=== PATIENT | male | born 1950 | race Caucasian/White ===

== ENCOUNTER 2017-08-16 18:43 | Observation (INO) ==
[2017-08-16] MEDS ORDERED: Aspirin 81 MG TAB.CHEW PO ONE (18:46)
--- NOTE | 2017-08-16 18:55 | Emergency Department Note ---
Disposition Clinical Impression: Chest pain Qualifiers: Chest pain type: unspecified Qualified Code(s): R07.9 - Chest pain, unspecified Disposition: Admitted As Inpatient Condition: Fair [facility]: [facility]Primary Care Provider[facility] - Forms: ED Satisfaction Letter Time of Disposition: 20:18 Chest Pain HPI - General Chief Complaint: ED Chest Pain Stated Complaint: cp and burning Source: patient, EMS Limitations: no limitations Vital Signs Reviewed: Yes Nursing Notes Reviewed: Yes - History of Present Illness HPI Narrative: This 78-year-old male presents to the emergency department via EMS after concern for retrosternal burning sensation that started this morning at 3 AM. Patient states that he came to the emergency department as he started becoming diaphoretic. Patient has extensive history of micro-infarction with CABG. Patient states that he has hypertension, diabetes, hyperlipidemia as well. He used to be a smoker. Patient states that the pain has not gotten any better. He was at the urgent care at the [place] when they sent him here. Severity scale (1-10): 5 - Related Data Home Medications Medication Instructions Recorded Confirmed Aspirin 08/16/17 metFORMIN 1,000 mg PO 1-2XD 08/16/17 08/16/17 Previous Rx's Medication Instructions Recorded HYDROcodone/Acet 5/325 mg [[place] 1 tab PO Q6HR PRN #15 tablet 12/14/16 5-325 mg] Ondansetron [Zofran] 8 mg PO Q8HR PRN #10 tablet 12/14/16 Allergies Allergy/AdvReac Type Severity Reaction Status Date / Time latex Allergy Hives Verified 08/16/17 18:48 lisinopril AdvReac Cough Verified 08/16/17 18:48 All systems ED: reviewed and negative except as stated. Review of Systems: As Per HPI Constitutional: Denies: fever Cardiovascular: Reports: chest pain Respiratory: Denies: cough, dyspnea Gastrointestinal: Denies: abdominal pain, nausea, vomiting Musculoskeletal: Reports: back pain Integumentary: Denies: rash Chest Pain PMH - Past Medical History Medical history: Reports: atrial fibrillation, COPD, coronary artery disease, diabetes, hyperlipidemia, hypertension, myocardial infarction, valvular heart disease, other Psychiatric history: Reports: no psych history - Social History Smoking Status: Former smoker Alcohol use: Reports: none Drug use: Reports: none Physical Exam CONSTITUTIONAL: Alert and oriented X3, well-nourished, well appearing, in no apparent distress HEAD: Normocephalic; atraumatic. EYES: PERRL, no scleral icterus. NOSE: The nose is normal in appearance without rhinorrhea RESP: Normal chest excursion with respiration; breath sounds clear and equal bilaterally; no wheezes, rhonchi, or rales Chest: Midline scar along the sternum, no rashes, no reproducible chest wall tenderness CARD: Regular rhythm, without murmurs, rub or gallop ABD: Non-distended; non-tender, soft,without rigidity, rebound or guarding SKIN: Normal for age and race; warm and dry; no apparent lesions - General Limitations: no limitations General appearance: alert Course Vital Signs Temperature 98.9 F 08/16/17 18:45 Pulse Rate 79 08/16/17 18:45 Respiratory Rate 20 08/16/17 18:45 Blood Pressure 165/91 08/16/17 18:45 O2 Sat by Pulse Oximetry 98 08/16/17 18:45 Temperature 98.9 F 08/16/17 18:45 Pulse Rate 81 08/16/17 19:16 Respiratory Rate 20 08/16/17 19:16 Blood Pressure 123/72 08/16/17 19:16 O2 Sat by Pulse Oximetry 93 08/16/17 19:16 Oxygen Delivery Oxygen Delivery Room Air Chest Pain - MDM Narrative Medical decision making narrative: 58-year-old male to this emergency department with concern for acute coronary syndrome. Patient was having retrosternal chest pain radiating to his shoulders as he had in his last previous myocardial infarction. Patient has extensive history of hypertension, hyperlipidemia, [place], CABG, diabetes, previous smoker. EKG did not reveal any ischemic ST changes. Chest x-ray did not reveal any acute process. Troponin was negative. BNP was mildly elevated at 213. At this time, patient is not any pedal edema or any rales on lung exam. Patient was given sublingual nitroglycerin in the emergency department this resolved his symptoms completely. He was also given an aspirin here as well. I discussed admission with the patient and family at bedside and they agreed. Patient was admitted to the hospitalist. Patient was not in any acute distress and hemodynamically stable upon time of admission. Chest X-Ray 08/16/17 18:46 IMPRESSION: No evidence of acute cardiopulmonary disease. D/ / Bebo Manzano MD / Bebo Manzano MD Interpreting Provider: Bebo Manzano MD Vital Signs Temperature 98.9 F 08/16/17 18:45 Pulse Rate 79 08/16/17 18:45 Respiratory Rate 20 08/16/17 18:45 Blood Pressure 165/91 08/16/17 18:45 O2 Sat by Pulse Oximetry 98 08/16/17 18:45 Temperature 98.9 F 08/16/17 18:45 Pulse Rate 81 08/16/17 19:16 Respiratory Rate 20 08/16/17 19:16 Blood Pressure 123/72 08/16/17 19:16 O2 Sat by Pulse Oximetry 93 08/16/17 19:16 Oxygen Delivery Oxygen Delivery Room Air - Lab Data Result diagrams: 08/16/17 19:05 08/16/17 19:05 Lab Results 08/16/17 08/16/17 08/16/17 Range/Units 19:05 19:05 19:05 WBC 10.6 (4.3-11.1) K/mcL RBC 5.12 (4.19-5.50) M/mcL Hgb 14.8 (12.9-16.9) g/dL Hct 45.4 (37.5-50.1) % MCV 88.7 (83.0-100.0) fL MCH 28.9 (28.0-33.3) pg MCHC 32.6 (31.6-35.5) g/dL RDW 16.3 H (11.5-14.5) % Plt Count 213 (140-400) K/mcL MPV 10.8 (9.4-12.4) fL Immature Gran % 0.4 (0-4) % Seg Neutrophils % 71.3 % Lymphocytes % 19.3 % Monocytes % 7.8 % Eosinophils % 0.8 % Basophils % 0.4 % Neutrophils # 7.6 (1.6-8.9) K/mcL Lymphocytes # 2.1 (0.6-4.6) K/mcL Monocytes # 0.8 (0.0-1.3) K/mcL Eosinophils # 0.1 (0.0-0.6) K/mcL Basophils # 0.0 (0.0-0.2) K/mcL PT 11.5 (9.4-12.1) Seconds INR 1.1 APTT 32.1 (26.0-36.0) Seconds Sodium (136-145) mEq/L Potassium (3.5-4.5) mEq/L Chloride (98-109) mEq/L Carbon Dioxide (19-29) mEq/L BUN (8-26) mg/dL Creatinine (0.72-1.25) mg/dL Est GFR ( Amer) (> 60) Est GFR (Non-Af Amer) (> 60) BUN/Creatinine Ratio (6-26) Glucose (70-99) mg/dL Calculated Osmolality (280-300) Calcium (8.6-10.8) mg/dL Troponin I (0-0.03) ng/mL B-Natriuretic Peptide 213 H (0-100) pg/mL Lipase (8-78) Units/L 08/16/17 08/16/17 Range/Units 19:05 19:05 WBC (4.3-11.1) K/mcL RBC (4.19-5.50) M/mcL Hgb (12.9-16.9) g/dL Hct (37.5-50.1) % MCV (83.0-100.0) fL MCH (28.0-33.3) pg MCHC (31.6-35.5) g/dL RDW (11.5-14.5) % Plt Count (140-400) K/mcL MPV (9.4-12.4) fL Immature Gran % (0-4) % Seg Neutrophils % % Lymphocytes % % Monocytes % % Eosinophils % % Basophils % % Neutrophils # (1.6-8.9) K/mcL Lymphocytes # (0.6-4.6) K/mcL Monocytes # (0.0-1.3) K/mcL Eosinophils # (0.0-0.6) K/mcL Basophils # (0.0-0.2) K/mcL PT (9.4-12.1) Seconds INR APTT (26.0-36.0) Seconds Sodium 138 (136-145) mEq/L Potassium 4.1 (3.5-4.5) mEq/L Chloride 98 (98-109) mEq/L Carbon Dioxide 33 H (19-29) mEq/L BUN 12 (8-26) mg/dL Creatinine 1.05 (0.72-1.25) mg/dL Est GFR ( Amer) > 60 (> 60) Est GFR (Non-Af Amer) > 60 (> 60) BUN/Creatinine Ratio 11 (6-26) Glucose 168 H (70-99) mg/dL Calculated Osmolality 290 (280-300) Calcium 10.1 (8.6-10.8) mg/dL Troponin I 0.02 (0-0.03) ng/mL B-Natriuretic Peptide (0-100) pg/mL Lipase 51 (8-78) Units/L - EKG Data EKG attestation: Yes I reviewed and interpreted this EKG. EKG results narrative: 18:50 Intracranial 80 bpm, ME interval 203 ms, QRS duration 97 seconds, QT 379 ms, QTC 414 ms, normal axis. Sinus rhythm with a ventricular rate of 80 bpm. There is no evidence of any ischemic ST changes noted on this electrocardiogram. No previous to compare this one to. Heart Score - Score History: Moderately Suspicious EKG: Normal Age: Greater than 65 Risk Factors: Equal/Greater than 3 risk factor or history of atherosclerotic disease Troponin: Less than normal limit HEART Score Total: 5 Attestation Statement - Attestation Attestation: Patient was seen with resident physician. I reviewed the history, physical, assessment and plan, and agree with the findings. I also personally evaluated this patient and had [id number] time with this patient. 66-year-old male presents to the emergency department with a chief complaint chest pain. Pain started approximately 3 AM has been continuous. Sharp midsternal and radiates a little bit he said through to the back no shortness of breath and diaphoresis. Took his aspirin and Plavix today. Has a extensive cardiac history. Was seen at the [place] urgent care and was sent to the emergency department for additional evaluation treatment. Patient has mild pain on arrival. On examination vital signs are stable. ENT is unremarkable heart and lungs are both normal. Abdomen is soft and nontender. Extremities unremarkable. Neurologically intact. ED course. Patient's pain was improved with nitroglycerin. Cardiac workup showed a negative troponin. Initial EKG does not show any acute ischemic changes. Chest x-ray did not show any acute abnormalities. We will admit to the hospitalist service for further evaluation and treatment. Contacted the hospitalist agreed to accept the patient. I agree with the resident physician assessment and plan.
[2017-08-16] MEDS: Nitroglycerin 0.4 MG TAB.SUBL SL ONE ×2 (19:07→19:14)
[2017-08-16 19:12] LABS: Basophils % 0.4 %; Eosinophils # 0.1 K/mcL (0.0-0.6); Eosinophils % 0.8 %; Hematocrit 45.4 % (37.5-50.1); Hemoglobin 14.8 g/dL (12.9-16.9); Immature Granulocytes % 0.4 % (0-4); Lymphocytes # 2.1 K/mcL (0.6-4.6); Lymphocytes % 19.3 %; Mean Corpuscular HGB Conc 32.6 g/dL (31.6-35.5); Mean Corpuscular Hemoglobin 28.9 pg (28.0-33.3); Mean Corpuscular Volume 88.7 fL (83.0-100.0); Mean Platelet Volume 10.8 fL (9.4-12.4); Monocytes # 0.8 K/mcL (0.0-1.3); Monocytes % 7.8 %; Neutrophils # 7.6 K/mcL (1.6-8.9); Platelet Count 213 K/mcL (140-400); Red Blood Count 5.12 M/mcL (4.19-5.50); Red Cell Distribution Width 16.3 % (11.5-14.5); Segmented Neutrophils % 71.3 %
[2017-08-16 19:17] LABS: INR 1.1; Prothrombin Time 11.5 Seconds (9.4-12.1)
[2017-08-16 19:20] LABS: Activated Partial Thrombo Time 32.1 Seconds (26.0-36.0)
[2017-08-16 19:26] LABS: BUN/Creatinine Ratio 11 (6-26); Blood Urea Nitrogen 12 mg/dL (8-26); Calcium 10.1 mg/dL (8.6-10.8); Carbon Dioxide 33 mEq/L (19-29); Chloride 98 mEq/L (98-109); Glucose 168 mg/dL (70-99); Lipase 51 Units/L (8-78); Osmolality,Calculated 290 (280-300); Potassium 4.1 mEq/L (3.5-4.5); Sodium 138 mEq/L (136-145); eGFR For African Americans > 60 (> 60); eGFR For Non-African Americans > 60 (> 60)
[2017-08-16] MEDS ORDERED: Naloxone 0.4 MG/ML INJ IVP PRN (21:26)
[2017-08-16] MEDS ORDERED: *HR* Dextrose 50 % in Water (Syg) 50 ML SYRINGE IVP PRN (21:27)
[2017-08-16] MEDS ORDERED: Dextrose Gel 15 GM PO PRN ×2 (21:27)
[2017-08-16] MEDS ORDERED: D5% in Water 1,000 ML IVC PRN (21:27)
[2017-08-16] MEDS ORDERED: Nitroglycerin 1 INCH/GM PACKET TP ONE (21:28)
--- NOTE | 2017-08-16 21:31 | Internal Med History&Physical ---
Date of Encounter: 08/16/17 Time of Encounter: 21:29 Assessment and Plan (1) Chest pain Current visit: Yes Status: Acute trend trop check TTE stress testing in the a.m nitropaste trial further management pending hospital course Qualifiers: Chest pain type: unspecified Qualified Code(s): R07.9 - Chest pain, unspecified (2) CAD (coronary artery disease) Current visit: Yes Status: Acute cardiac eval for CP above Qualifiers: Qualified Code(s): I25.10 - Atherosclerotic heart disease of [place] coronary artery without angina pectoris (3) DMII (diabetes mellitus, type 2) Current visit: Yes Status: Acute hold oral meds, iss for now Qualifiers: Qualified Code(s): E11.9 - Type 2 diabetes mellitus without complications Internal Medicine - H&P: HPI Chief complaint: Chest pain History of present illness: Mr. Dunne is a 66 year old male with hx fo CAD s/p CABG 2011 and multiple hx of MA since 1997, last 2011 who presents with CP eval. He reports a heartburn like CP since 3 a.m that woke him up from bed and lasted through the day. Tums did not improve symptoms. Rate 8-9/10. Radiate from sternum to left chest. He said that this presentation was similar to his prior cardiac presentation. His chest pain has resolved on interview. EKG reviewed by self with rate 80, NSR XR/XR chest 1V portable IMPRESSION: No evidence of acute cardiopulmonary disease. Past Med Surg Social Fam HX - Past Medical History Medical history: atrial fibrillation, COPD, coronary artery disease, diabetes, hyperlipidemia, hypertension, myocardial infarction, valvular heart disease, other Psychiatric history: no psych history - Past Surgical History Surgical History: coronary bypass (CABG) - Social History Smoking Status: Former smoker Smokeless Tobacco Status: No Alcohol use: none Drug use: none - Additional Family History Additional family history: HTN Internal Medicine - H&P: Meds HYDROcodone/Acet 5/325 mg [[place] 5-325 mg] 1 tab PO Q6HR PRN #15 tablet [Rx] Ondansetron [Zofran] 8 mg PO Q8HR PRN #10 tablet 12/14/16 [Rx] Amlodipine Besylate 2.5 mg PO 1-3XD 08/16/17 [History] Aspirin 12/03/17 [History] Clopidogrel Bisulfate 75 mg PO DAILY 08/16/17 [History] Docusate 100 mg PO 1-2XD 08/16/17 [History] Ferrous Sulfate 325 mg PO 1-2XD 08/16/17 [History] GlipiZIDE 5 mg PO 1-2XD 08/16/17 [History] Hydroxyzine Pamoate 25 mg PO 1-2XD 08/16/17 [History] Losartan Potassium 25 mg PO 1-3XD 08/16/17 [History] Metoprolol Succinate 25 mg PO 08/16/17 [History] Pantoprazole 40 mg PO 1-2XD 08/16/17 [History] metFORMIN 1,000 mg PO 1-2XD 08/16/17 [History] 3 Allergy/AdvReac Type Severity Reaction Status Date / Time latex Allergy Hives Verified 08/16/17 18:48 lisinopril AdvReac Cough Verified 08/16/17 18:48 All Systems PM: A 10-system review of systems was performed and is negative for pertinent findings except as documented above in the HPI. Review of systems: ROS 14 point review of systems reviewed as best as possible given presentation. Pertinent positive or negative as per HPI or otherwise reviewed as negative - Constitutional Vitals: Temp Pulse Resp BP Pulse Ox 98.9 F 64 18 151/91 95 08/16/17 18:45 08/16/17 20:44 08/16/17 21:04 08/16/17 21:04 08/16/17 20:44 Exam: General - AAO x 3 Psych - Appropriate affect/speech. No agitation Eyes - AJIT. Eye lids intact. No scleral icterus Heart - Sinus. RRR. S1 and S2 present. No added HS/murmurs appreciated. No elevated JVD appreciated. Lung - Adequate air entry b/l, No crackles/wheezes appreciated GI - Soft, non-tender. No hepatosplenomegaly/ascites. BS+ - No CVA/suprapubic tenderness or palpable bladder distension MSK - Joints with normal ROM. No joint swellings Internal Med - H&P Results - Labs CBC & Chem 7: 08/16/17 19:05 08/16/17 19:05
[2017-08-17 01:21] LABS: Basophils % 0.5 %; Eosinophils # 0.1 K/mcL (0.0-0.6); Eosinophils % 1.6 %; Hematocrit 40.9 % (37.5-50.1); Hemoglobin 13.5 g/dL (12.9-16.9); Immature Granulocytes % 0.1 % (0-4); Lymphocytes # 2.4 K/mcL (0.6-4.6); Lymphocytes % 27.8 %; Mean Platelet Volume 10.9 fL (9.4-12.4); Monocytes # 0.9 K/mcL (0.0-1.3); Monocytes % 10.4 %; Neutrophils # 5.1 K/mcL (1.6-8.9); Platelet Count 189 K/mcL (140-400); Red Blood Count 4.65 M/mcL (4.19-5.50); Red Cell Distribution Width 16.3 % (11.5-14.5); Segmented Neutrophils % 59.6 %
[2017-08-17 01:41] LABS: BUN/Creatinine Ratio 14 (6-26); Blood Urea Nitrogen 12 mg/dL (8-26); Calcium 9.7 mg/dL (8.6-10.8); Carbon Dioxide 31 mEq/L (19-29); Chloride 101 mEq/L (98-109); Glucose 123 mg/dL (70-99); Osmolality,Calculated 285 (280-300); Potassium 3.6 mEq/L (3.5-4.5); Sodium 137 mEq/L (136-145); eGFR For African Americans > 60 (> 60); eGFR For Non-African Americans > 60 (> 60)
[2017-08-17] MEDS ORDERED: Regadenoson 0.4 MG/5 ML SYRINGE IVP ONE (06:20)
[2017-08-17] MEDS ORDERED: Aspirin 81 MG TAB.CHEW PO SCH (09:00)
[2017-08-17] MEDS: Insulin LISPRO 300 UNITS/3 ML VIAL SQ SCH ×2 (10:15→12:23)
[2017-08-17 11:06] VITALS: BP 123/66
--- NOTE | 2017-08-17 13:19 | Discharge Summary ---
Date of Encounter: 08/17/17 Time of Encounter: 13:14 - Discharge Diagnosis (1) CAD (coronary artery disease) Priority: Primary Status: Acute Comments: with hx stents and CABG. has not followed up with cardiology in several years. Presented with chest pain described as a burning sensation that woke him from sleep. He received ASA and EGD. Serial troponins negative, EKG without acute ST changes. TTE with EF 60%, moderate diastolic dysfunction and moderate mitral stenosis. Stress test with evidence of previous infarct, no active ischemia. Chest pain resolved at time of discharge. Strongly recommend establishing care with cardiology. Continue home ASA, BB, statin. Qualifiers: Coronary Disease-Associated Artery/Lesion type: [place] artery [place] vs. transplanted heart: [place] heart Associated angina: without angina Qualified Code(s): I25.10 - Atherosclerotic heart disease of [place] coronary artery without angina pectoris (2) DMII (diabetes mellitus, type 2) Priority: Primary Status: Acute Comments: per hx. continue home diabetes medication regimen. Qualifiers: Diabetes mellitus complication status: without complication Diabetes mellitus intermodal truck driver insulin use: without intermodal truck driver use Qualified Code(s): E11.9 - Type 2 diabetes mellitus without complications (3) Essential hypertension Priority: Primary Status: Acute Comments: per hx. BP controlled. Continue home BP medication. - Discharge Medications Home Medications: HYDROcodone/Acet 5/325 mg [[place] 5-325 mg] 1 tab PO Q6HR PRN #15 tablet [Rx] Acetaminophen [Tylenol] 500 mg PO PRN PRN 08/16/17 [History] Amlodipine Besylate 2.5 mg PO TID 08/16/17 [History] Aspirin [Lo-Dose Aspirin EC] 81 mg PO DAILY 08/16/17 [History] Atorvastatin Calcium [Lipitor] 40 mg PO DAILY 08/16/17 [History] Cholecalciferol (Vitamin D3) [Vitamin D3] 1,000 units PO BID 08/16/17 [History] Clopidogrel Bisulfate [Plavix] 75 mg PO DAILY 08/16/17 [History] Diclofenac Sodium [Voltaren] 100 gm TP PRN PRN 08/16/17 [History] Docusate Sodium [Move It Along] 100 mg PO BID 08/16/17 [History] Duloxetine HCl [Cymbalta] 60 mg PO DAILY 08/16/17 [History] Ferrous Sulfate [Iron] 325 mg PO BID 08/16/17 [History] Folic Acid 1 mg PO DAILY 08/16/17 [History] Gabapentin [Neurontin] 300 mg PO TID 08/16/17 [History] GlipiZIDE [Glipizide Xl] 5 mg PO BID 08/16/17 [History] Ipratropium/Albuterol Sulfate [Combivent Respimat Inhal [place]] 20 mcg IH QID 11/28 [History] Losartan Potassium [Cozaar] 25 mg PO TID 08/16/17 [History] Methocarbamol [Robaxin-750] 750 mg PO QID 08/16/17 [History] Methotrexate Sodium [Trexall] 7.5 mg PO Q1W 08/16/17 [History] Metoprolol Succinate 12.5 mg PO DAILY 08/16/17 [History] Naproxen [Naprosyn] 500 mg PO BID 08/16/17 [History] Ondansetron [Zofran] 8 mg PO TID PRN 08/16/17 [History] Pantoprazole Sodium [Protonix] 40 mg PO BID 08/16/17 [History] Potassium Chloride [Klor-Con 10] 10 meq PO BID 08/16/17 [History] Saxagliptin HCl [Onglyza] 5 mg PO DAILY 08/16/17 [History] Tramadol HCl [Ultram] 50 mg PO TID PRN 08/16/17 [History] Ubidecarenone [Coq10] 100 mg PO DAILY 08/16/17 [History] Vitamin B Complex [B Complex] 1 each PO DAILY 08/16/17 [History] hydrOXYzine pamoate [HydrOXYzine Pamoate] 25 mg PO BID 08/16/17 [History] metFORMIN [Glucophage] 1,000 mg PO BIDWM 08/16/17 [History] Allergies/Adverse Reactions: 3 Allergy/AdvReac Type Severity Reaction Status Date / Time latex Allergy Hives Verified 08/16/17 18:48 lisinopril AdvReac Cough Verified 08/16/17 18:48 Procedures/tests Complete & Pending: Procedures Performed prior 72 hours Category Date Time Status NM aaron perf SPECT multi [NM] Routine Exams 08/16/17 21:25 Taken EV echocardiogram Routine Y 08/17/17 21:24 Completed SP pharm nuclear stress Routine Y 08/16/17 21:24 Completed Date of admission: 08/16/17 20:52 Primary care physician: PCP [facility] Consults: 08/17/17 12:14 Consult to Sampling Theory Teacher [CONS] Routine Reason for Consult: heart doctor and follow up Discharging clinician: [place] Santiago Anticipated date of discharge: 08/17/17 - Patient Status Disposition: Home, Self-Care Condition: Good Functional capacity at discharge: independent ambulation Overall status at discharge: patient is back to baseline - Discharge Instructions Instructions: Coronary Artery Disease (DC), Chest Pain (DC) Follow Up With: [facility] [Primary Care Provider] - Additional Instructions: Please call your primary care physician within 24 hours or next business day to schedule a follow-up appointment Please establish care with a sampler ovens through the [place]. Return to the emergency room if you experience chest pain and/or shortness of breath. - Diet and Activity Activity: increase activity as tolerated Diet: diabetic diet, low fat, low cholesterol Interval History: Seen and examined at bedside. Patient is to me, information obtained from chart review and patient report. Patient says he feels better, back to baseline. Says he woke to an episode of epigastric burning sensation that radiated to chest and asked what brought him to the ER. Sensation has since resolved. Patient does not follow with cardiology, has not seen a sampler ovens in several years. Reviewed stress test and echo with patient, he declined inpatient cardiology consultation. I strongly recommended establishing care with sampler ovens [facility]. He has no complaints at time of discharge; specifically denies chest pain, no shortness of breath, burning sensation, no acid reflux. Hospital course: See assessment and plan for hospital course - Time Spent with Patient Total time spent providing and/or coordinating discharge services: - Constitutional Vitals: Temp Pulse Resp BP Pulse Ox 97.9 F 67 16 123/66 92 08/17/17 11:05 08/17/17 11:05 08/17/17 11:05 08/17/17 11:05 08/17/17 11:05 General appearance: Present: A&O X 3, morbidly obese, no acute distress - Head Head exam: Present: atraumatic, normocephalic - Eye Eye exam: Present: PERRL, conjuntiva pink, sclera anicteric Pupils: Present: PERRL - Neck Neck exam general surgery: Present: supple, trachea midline. Absent: lymphadenopathy - Respiratory Respiratory exam: Present: CTAB. Absent: accessory muscle use, rales, rhonchi, wheezes - Cardiovascular Cardiovascular exam: Present: RRR, +S1, +S2. Absent: diastolic murmur, gallop, rubs, systolic murmur - GI/Abdominal GI/Abdominal exam: Present: normal bowel sounds, soft, no peritoneal signs. Absent: distended, tenderness - Extremities Exam Extremities exam: Present: warm, radial pulses palpable and symmetrical. Absent : calf tenderness, cyanotic, pedal edema - Neurological Exam Neurological exam: Present: CN II-XII intact, oriented X3, no focal deficits. Absent: pronater drift, facial droop, speech deficit - Skin Skin exam: Present: dry, intact
[2017-08-17] MEDS ORDERED: Insulin LISPRO 300 UNITS/3 ML VIAL SQ SCH (21:00)
== END 2017-08-17 14:37 | disposition home or self-care (01) ==
LOC: EMEROO 18:43 → 3BNU 20:52 → INTOOBSV 20:52 → 3BNU 21:00
PROVIDERS: ADMIT Internal Medicine Hematology & Oncology; ATTEND Registered Nurse